=== PATIENT | female | born 1970 | race Hispanic/Latino ===

== ENCOUNTER 2017-07-31 14:53 | Inpatient (IN) | payer SELFPAY ==
[~2017-07-31] VITALS: Ht 160 cm; Wt 79.2 kg
[2017-07-31] MEDS ORDERED: METHYLPREDNISOLONE SOD SUCC 125MG/2ML VIAL ONE (15:41)
[2017-07-31] MEDS ORDERED: AMPICILLIN SODIUM/SULBACTAM NA 1.5GM VIAL ONE (15:42)
[2017-07-31] MEDS ORDERED: DEXTROSE 5 % AND 0.9 % NACL 1,000 ML IV ONE (15:43)
[2017-07-31 15:45] LABS: BASOPHILS % (AUTO) 0.2 % (0.0-5.0); LYMPHOCYTES % (AUTO) 10.7 % (21.0-51.0); MEAN CORPUSCULAR HEMOGLOBIN 29.2 pg (27.0-33.0); MEAN CORPUSCULAR HGB CONC 33.8 g/dL (32.0-36.0); MEAN CORPUSCULAR VOLUME 86.3 fL (79-99); NEUTROPHILS % (AUTO) 82.1 % (40.0-77.0); PLATELET COUNT (AUTO) 465 K/uL (130-400); RED BLOOD CELL COUNT(AUTO) 4.87 MIL/uL (4.00-5.50); RED CELL DISTRIBUTION WIDTH 12.8 % (11.0-15.5); WHITE BLOOD COUNT (AUTO) 18.4 K/uL (4.8-10.8)
[2017-07-31] MEDS ORDERED: ACETAMINOPHEN-CODEINE ELIXIR 5 ML UDCUP ONE (16:06)
[2017-07-31 16:10] LABS: CREATININE 0.7 mg/dL (0.5-1.5); POTASSIUM 3.2 mmol/L (3.5-5.1)
[2017-07-31 16:15] LABS: ALBUMIN 3.5 g/dL (3.5-5.0); BILIRUBIN,TOTAL 0.7 mg/dL (0.2-1.0); TOTAL PROTEIN, SERUM 8.8 g/dL (6.0-8.3)
[2017-07-31 17:40] VITALS: BP 143/87
[2017-07-31] MEDS ORDERED: METF500T6 PO (18:07)
[2017-07-31] MEDS ORDERED: LISI10TA7 PO (18:07)
[2017-07-31] MEDS ORDERED: FLU VACC QS2017-18 36MOS UP/PF 60 MCG/0.5 ML ML IM SCH (18:30)
[2017-07-31] MEDS: DEXTROSE 5 % AND 0.9 % NACL 1,000 ML IV SCH (18:33)
[2017-07-31] MEDS ORDERED: GLUCAGON 1MG KIT 1 MG ML IM PRN (19:30)
[2017-07-31] MEDS ORDERED: DEXTROSE 50%-WATER 50 ML DISP.SYRIN IV PRN (19:30)
[2017-07-31 20:00] VITALS: BP 150/89
[2017-07-31] MEDS: ACETAMINOPHEN-CODEINE ELIXIR 5 ML UDCUP PO PRN (21:31)
[2017-07-31] MEDS: INSULIN HUMULIN R 100 UNIT/ML 3ML SQ SCH (21:47)
[2017-08-01] VITALS: BP 142/73
[2017-08-01] MEDS ORDERED: POTASSIUM CHLORIDE 20 MEQ ERTAB PO PRN (01:30)
[2017-08-01] MEDS ORDERED: HYDRALAZINE HCL 20 MG/ML VIAL IV PRN (01:30)
[2017-08-01] MEDS ORDERED: ONDANSETRON HCL 4 MG/2 ML VIAL IVP PRN (01:30)
[2017-08-01] MEDS ORDERED: POTASSIUM CHLORIDE 10% ELIXIR 20 MEQ/15 ML UDCUP PO PRN (01:30)
[2017-08-01] MEDS ORDERED: BISACODYL 10 MG SUPP.RECT RC ONE (01:30)
[2017-08-01] MEDS ORDERED: LACTULOSE 20 GM/30 ML UDCUP PO PRN (01:30)
[2017-08-01] MEDS ORDERED: MORPHINE SULFATE 2 MG/ML 1ML SYG IVP PRN (01:30)
[2017-08-01] MEDS ORDERED: IPRATROPIUM/ALBUTEROL SULFATE 3 ML SOLUTION IH PRN (01:30)
[2017-08-01] MEDS: UNASYN 1.5GM+NS 100ML 100 ML IV SCH ×2 (03:34→15:59)
[2017-08-01] MEDS: MORPHINE SULFATE 2 MG/ML 1ML SYG IVP PRN ×2 (03:42→11:07)
[2017-08-01 03:48] LABS: BASOPHILS % (AUTO) 0.1 % (0.0-5.0); HEMATOCRIT 36.4 % (36-48); LYMPHOCYTES % (AUTO) 8.5 % (21.0-51.0); MEAN CORPUSCULAR HEMOGLOBIN 28.8 pg (27.0-33.0); MEAN CORPUSCULAR HGB CONC 33.8 g/dL (32.0-36.0); MEAN CORPUSCULAR VOLUME 85.3 fL (79-99); MONOCYTES % (AUTO) 3.6 % (3.0-13.0); NEUTROPHILS % (AUTO) 87.8 % (40.0-77.0); PLATELET COUNT (AUTO) 381 K/uL (130-400); RED BLOOD CELL COUNT(AUTO) 4.27 MIL/uL (4.00-5.50); RED CELL DISTRIBUTION WIDTH 12.5 % (11.0-15.5); WHITE BLOOD COUNT (AUTO) 11.6 K/uL (4.8-10.8)
[2017-08-01 03:57] LABS: CREATININE 0.4 mg/dL (0.5-1.5)
[2017-08-01 04:00] VITALS: BP 149/91
[2017-08-01 04:02] LABS: HEMOGLOBIN A1C 7.7 % (4.0-6.0)
[2017-08-01] MEDS: INSULIN HUMULIN R 100 UNIT/ML 3ML SQ SCH ×4 (06:14→21:38)
[2017-08-01] MEDS: DEXTROSE 5 % AND 0.9 % NACL 1,000 ML IV SCH (06:40)
[2017-08-01 08:00] VITALS: BP 146/88
[2017-08-01] MEDS: METFORMIN HCL 500 MG TAB.SR.24H PO SCH (09:13)
[2017-08-01] MEDS: SODIUM CHLORIDE 0.9% 1000ML 1,000 ML IV SCH (09:13)
[2017-08-01] MEDS: FAMOTIDINE/PF 20 MG/2 ML VIAL IV SCH ×2 (09:13→21:32)
[2017-08-01] MEDS: LISINOPRIL 10 MG TABLET PO SCH (09:14)
[2017-08-01 11:00] VITALS: BP 153/96
[2017-08-01] MEDS: CHLORHEXIDINE GLUCONATE 473 ML MOUTHWASH MM SCH ×2 (15:59→21:33)
[2017-08-01 16:00] VITALS: BP 137/91
[2017-08-01] MEDS: ACETAMINOPHEN-CODEINE ELIXIR 5 ML UDCUP PO PRN (18:00)
[2017-08-01 20:00] VITALS: BP 131/59
[2017-08-02] VITALS: BP 128/65
[2017-08-02 04:00] VITALS: BP 121/75
[2017-08-02] MEDS: UNASYN 1.5GM+NS 100ML 100 ML IV SCH ×2 (05:02→17:30)
[2017-08-02] MEDS: SODIUM CHLORIDE 0.9% 1000ML 1,000 ML IV SCH (05:02)
[2017-08-02 05:08] LABS: BASOPHILS % (AUTO) 0.1 % (0.0-5.0); EOSINOPHILS % (AUTO) 0.3 % (0.0-8.0); HEMATOCRIT 34.3 % (36-48); LYMPHOCYTES % (AUTO) 5.6 % (21.0-51.0); MEAN CORPUSCULAR HEMOGLOBIN 29.2 pg (27.0-33.0); MEAN CORPUSCULAR HGB CONC 34.7 g/dL (32.0-36.0); MEAN CORPUSCULAR VOLUME 84.2 fL (79-99); MONOCYTES % (AUTO) 4.7 % (3.0-13.0); NEUTROPHILS % (AUTO) 89.3 % (40.0-77.0); PLATELET COUNT (AUTO) 345 K/uL (130-400); RED BLOOD CELL COUNT(AUTO) 4.08 MIL/uL (4.00-5.50); RED CELL DISTRIBUTION WIDTH 12.2 % (11.0-15.5); WHITE BLOOD COUNT (AUTO) 17.2 K/uL (4.8-10.8)
[2017-08-02 05:47] LABS: CREATININE 0.6 mg/dL (0.5-1.5); POTASSIUM 3.1 mmol/L (3.5-5.1)
[2017-08-02] MEDS: INSULIN HUMULIN R 100 UNIT/ML 3ML SQ SCH ×4 (06:48→21:26)
[2017-08-02 08:00] VITALS: BP 139/79
[2017-08-02] MEDS: METFORMIN HCL 500 MG TAB.SR.24H PO SCH (09:00)
[2017-08-02] MEDS: MORPHINE SULFATE 2 MG/ML 1ML SYG IVP PRN (09:57)
[2017-08-02] MEDS: LISINOPRIL 10 MG TABLET PO SCH (09:57)
[2017-08-02] MEDS: FAMOTIDINE/PF 20 MG/2 ML VIAL IV SCH ×2 (09:57→21:22)
[2017-08-02] MEDS: LIDOCAINE HCL-MPF 1% 2ML VIAL IVP PRN ×2 (09:58→14:49)
[2017-08-02] MEDS: POTASSIUM CHLORIDE 20MEQ/100ML 100 ML IV PRN ×2 (09:58→14:48)
[2017-08-02] MEDS: CHLORHEXIDINE GLUCONATE 473 ML MOUTHWASH MM SCH ×3 (10:04→21:22)
[2017-08-02 12:00] VITALS: BP 143/79
[2017-08-02 16:00] VITALS: BP 141/76
[2017-08-02] MEDS ORDERED: SODIUM CHLORIDE 0.9% 100 ML IV ONE (16:39)
[2017-08-02 20:00] VITALS: BP 149/84
[2017-08-03] VITALS: BP 138/87
[2017-08-03 04:08] LABS: BASOPHILS % (AUTO) 0.2 % (0.0-5.0); EOSINOPHILS % (AUTO) 2.3 % (0.0-8.0); HEMATOCRIT 35.7 % (36-48); MEAN CORPUSCULAR HEMOGLOBIN 29.4 pg (27.0-33.0); MEAN CORPUSCULAR HGB CONC 34.7 g/dL (32.0-36.0); MEAN CORPUSCULAR VOLUME 84.5 fL (79-99); MONOCYTES % (AUTO) 5.8 % (3.0-13.0); NEUTROPHILS % (AUTO) 64.7 % (40.0-77.0); PLATELET COUNT (AUTO) 316 K/uL (130-400); RED BLOOD CELL COUNT(AUTO) 4.22 MIL/uL (4.00-5.50); RED CELL DISTRIBUTION WIDTH 12.7 % (11.0-15.5)
[2017-08-03 04:09] LABS: CREATININE 0.4 mg/dL (0.5-1.5)
[2017-08-03] MEDS: UNASYN 1.5GM+NS 100ML 100 ML IV SCH ×2 (04:15→17:11)
[2017-08-03] MEDS: MORPHINE SULFATE 2 MG/ML 1ML SYG IVP PRN (04:23)
[2017-08-03] MEDS: INSULIN HUMULIN R 100 UNIT/ML 3ML SQ SCH ×4 (06:35→21:00)
[2017-08-03] MEDS: POTASSIUM CHLORIDE 20MEQ/100ML 100 ML IV PRN ×2 (06:36→18:38)
[2017-08-03] MEDS ORDERED: MAGNESIUM 2GM PREMIX 50ML 50 ML IV SCH (07:15)
[2017-08-03 08:00] VITALS: BP 123/77
[2017-08-03] MEDS: METFORMIN HCL 500 MG TAB.SR.24H PO SCH (09:00)
[2017-08-03] MEDS: LISINOPRIL 10 MG TABLET PO SCH (10:16)
[2017-08-03] MEDS: CHLORHEXIDINE GLUCONATE 473 ML MOUTHWASH MM SCH ×3 (10:17→21:37)
[2017-08-03] MEDS: FAMOTIDINE/PF 20 MG/2 ML VIAL IV SCH ×2 (10:17→21:37)
[2017-08-03 11:00] VITALS: BP 142/87
[2017-08-03 16:00] VITALS: BP 134/63
[2017-08-03] MEDS: LIDOCAINE HCL-MPF 1% 2ML VIAL IVP PRN (18:38)
[2017-08-03 19:30] VITALS: BP 152/95
[2017-08-03 23:20] VITALS: BP 132/77
[2017-08-04 03:20] VITALS: BP 128/64
[2017-08-04 03:43] LABS: CREATININE 0.5 mg/dL (0.5-1.5); POTASSIUM 3.4 mmol/L (3.5-5.1)
[2017-08-04] MEDS: UNASYN 1.5GM+NS 100ML 100 ML IV SCH (03:59)
[2017-08-04 07:00] VITALS: BP 129/79
[2017-08-04] MEDS: INSULIN HUMULIN R 100 UNIT/ML 3ML SQ SCH ×2 (07:30→11:32)
[2017-08-04] MEDS: CHLORHEXIDINE GLUCONATE 473 ML MOUTHWASH MM SCH (09:00)
[2017-08-04] MEDS: METFORMIN HCL 500 MG TAB.SR.24H PO SCH (09:46)
[2017-08-04] MEDS: LISINOPRIL 10 MG TABLET PO SCH (09:47)
[2017-08-04 11:00] VITALS: BP 136/84
== END 2017-08-04 13:05 | disposition home or self-care (01) | DRG 134 ==
LOC: EDH 14:53 → EDHIP 14:54 → 3AH 17:42
PROVIDERS: ADMIT Otolaryngology Plastic Surgery within the Head & Neck; ATTEND Otolaryngology Plastic Surgery within the Head & Neck
PROC: 0C9P0ZZ Drainage of Tonsils, Open Approach (ICD-10-PCS; principal; 2017-08-01)
PROC: 3E0234Z Introduction of Serum, Toxoid and Vaccine into Muscle, Percutaneous Approach (ICD-10-PCS; 2017-08-01)
DX: J36 Peritonsillar abscess (principal); E11.65 Type 2 diabetes mellitus with hyperglycemia; E87.6 Hypokalemia; E86.0 Dehydration; I10 Essential (primary) hypertension; E78.5 Hyperlipidemia, unspecified; Z23 Encounter for immunization
CPT/HCPCS: 10060; 36415; 80048; 80053; 82948; 83036; 83735; 84132; 85025; 87070; 94664; G0008; J0295; J1815; J2930; J3475; J3480; J3490; J7030; J7042; Q2038

== ENCOUNTER 2019-04-01 18:02 | Emergency (ER) | payer SELFPAY ==
[~2019-04-01 18:02] MED LIST: LISI10TA7 PO; METF-444 PO
[2019-04-01] MEDS ORDERED: ACETAMINOPHEN EXTRA STRENGTH 500 MG TABLET ONE (20:25)
== END 2019-04-01 20:35 | disposition home or self-care (01) ==
LOC: EDH 18:02
DX: S86.811A Strain of other muscle(s) and tendon(s) at lower leg level, right leg, initial encounter (principal); S93.401A Sprain of unspecified ligament of right ankle, initial encounter; I10 Essential (primary) hypertension; E11.9 Type 2 diabetes mellitus without complications; X58.XXXA Exposure to other specified factors, initial encounter; Y93.89 Activity, other specified; Y92.89 Other specified places as the place of occurrence of the external cause; Y99.8 Other external cause status
CPT/HCPCS: 73600; 93971

== ENCOUNTER 2020-06-15 20:36 | Observation (INO) | payer OTHER, SELFPAY ==
[~2020-06-15] VITALS: Ht 157.5 cm; Wt 73.9 kg
[~2020-06-15 20:36] MED LIST changes: +LISI10TA24 PO; -LISI10TA7 PO
[2020-06-15] MEDS ORDERED: AZITHROMYCIN 500MG+NS 250ML 250 ML IV ONE (21:31)
[2020-06-15] MEDS ORDERED: CEFTRIAXONE SODIUM 2 GM VIAL ONE (21:31)
[2020-06-15] MEDS ORDERED: IBUPROFEN 200 MG TAB ONE (21:31)
[2020-06-15] MEDS ORDERED: IBUPROFEN 400 MG TABLET ONE (21:31)
[2020-06-15 21:33] LABS: BASOPHILS % (AUTO) 0.1 % (0.0-5.0); EOSINOPHILS % (AUTO) 1.7 % (0.0-8.0); LYMPHOCYTES % (AUTO) 11.9 % (21.0-51.0); MEAN CORPUSCULAR HEMOGLOBIN 28.8 pg (27.0-33.0); MEAN CORPUSCULAR HGB CONC 34.4 g/dL (32.0-36.0); MEAN CORPUSCULAR VOLUME 83.7 fL (79-99); MONOCYTES % (AUTO) 5.9 % (3.0-13.0); NEUTROPHILS % (AUTO) 80.3 % (40.0-77.0); PLATELET COUNT (AUTO) 168 K/uL (130-400); RED BLOOD CELL COUNT(AUTO) 5.14 MIL/uL (4.00-5.50); RED CELL DISTRIBUTION WIDTH 11.3 % (11.0-15.5); WHITE BLOOD COUNT (AUTO) 7.5 K/uL (4.8-10.8)
[2020-06-15 21:49] LABS: CARBON DIOXIDE 27 mmol/L (21-32); CHLORIDE 94 mmol/L (101-111); CREATININE 0.7 mg/dL (0.5-1.5); GLOMERULAR FILTR. RATE CALC 95 mL/min (>60); GLUCOSE,RANDOM 276 mg/dL (70-105); INR 1.02 (0.85-1.15); POTASSIUM 3.4 mmol/L (3.5-5.1); PROTHROMBIN TIME 10.9 SEC (9.6-11.6); SODIUM SERUM 133 mmol/L (136-145); UREA NITROGEN, BLOOD 9 mg/dL (7-18)
[2020-06-15 21:51] LABS: PARTIAL THROMBOPLASTIN TIME 31.1 SEC (26.3-35.5)
[2020-06-15 22:00] LABS: ALANINE AMINOTRANSFERASE 24 U/L (12-78); ALBUMIN 4.1 g/dL (3.5-5.0); ASPARTATE AMINOTRANSFERASE 21 U/L (10-37); BILIRUBIN,TOTAL 0.9 mg/dL (0.2-1.0); CREATINE KINASE, TOTAL 31 U/L (21-232); MYOGLOBIN 22 ng/mL (10-92); TOTAL PROTEIN, SERUM 8.6 g/dL (6.0-8.3); TROPONIN I < 0.04 ng/mL (0.00-0.06)
[2020-06-15 22:13] LABS: ABG BASE EXCESS -0.3 mmol/L (-2.0-3.0); ABG HCO3 22.1 mmol/L (21.0-28.0); ABG OXYGEN SATURATION 95.1 % (95.0-99.0); ABG PCO2 31 mmHg (32-45)
[2020-06-16] MEDS ORDERED: POTASSIUM CHLORIDE 20 MEQ ERTAB PO ONE (00:12)
[2020-06-16] MEDS ORDERED: ONDANSETRON HCL 4 MG/2 ML VIAL IV PRN (00:30)
[2020-06-16] MEDS ORDERED: IBUPROFEN 600 MG TABLET PO PRN (00:30)
[2020-06-16] MEDS: DOXYCYCLINE 100MG+NS 250ML 250 ML IV SCH ×2 (00:30→10:40)
[2020-06-16] MEDS ORDERED: CEFTRIAXONE SODIUM 1 GM IV SCH (00:30)
[2020-06-16 00:33] LABS: APPEARANCE,URINE Turbid (CLEAR); BILIRUBIN,URINE Negative (NEGATIVE); COLOR,URINE Yellow (YELLOW); GLUCOSE, URINE (UA) >=1000 mg/dL (NEGATIVE); KETONES,URINE 40 mg/dL (NEGATIVE); LEUKOCYTE ESTERASE ,URINE Trace (NEGATIVE); NITRATE,URINE Negative (NEGATIVE); OCCULT BLOOD,URINE Negative (NEGATIVE); PROTEIN,URINE Trace mg/dL (NEGATIVE)
[2020-06-16] MEDS ORDERED: DOXYCYCLINE 100MG+NS 250ML 250 ML IV ONE (00:39)
[2020-06-16 00:55] LABS: BACTERIA,URINE Few /HPF (None Seen); RBC,URINE 0-1 /HPF (0-1); WBC,URINE 0-1 /HPF (0-1)
[2020-06-16 00:56] LABS: YEAST,URINE BUDDING Many /HPF (None Seen)
[2020-06-16 03:43] VITALS: BP 124/79
[2020-06-16] MEDS ORDERED: LISI20TA24 PO ×2 (04:01→05:02)
[2020-06-16] MEDS ORDERED: METF-446 PO (04:01)
[2020-06-16 06:28] LABS: INR 1.02 (0.85-1.15); PROTHROMBIN TIME 10.9 SEC (9.6-11.6)
[2020-06-16 06:29] LABS: PARTIAL THROMBOPLASTIN TIME 30.8 SEC (26.3-35.5)
[2020-06-16] MEDS: INSULIN HUMULIN R 100 UNIT/ML 3ML SQ SCH ×3 (07:30→16:31)
[2020-06-16] MEDS ORDERED: ENOXAPARIN SODIUM 40 MG/0.4 ML SYRINGE SQ SCH (09:00)
[2020-06-16] MEDS ORDERED: LISINOPRIL 20 MG TABLET PO SCH (09:00)
[2020-06-16] MEDS ORDERED: FAMOTIDINE/PF 20 MG/2 ML VIAL IV SCH (09:00)
[2020-06-16 11:42] VITALS: BP 150/82
[2020-06-16] MEDS ORDERED: CEFD300C3 PO (13:25)
[2020-06-16] MEDS ORDERED: DOXY100C2 PO (13:25)
[2020-06-16 15:32] VITALS: BP 113/64
[2020-06-16] MEDS ORDERED: INSULIN GLARGINE 100 UNITS/ML 10 ML VIAL SQ SCH (21:00)
== END 2020-06-16 13:00 | disposition home or self-care (01) ==
LOC: EDH 20:36 → EDHIP 20:37 → 2AH 06-16 03:30
PROVIDERS: ADMIT Internal Medicine; ATTEND Internal Medicine
DX: U07.1 COVID-19 (principal); J12.82 Pneumonia due to coronavirus disease 2019; E87.6 Hypokalemia; E11.65 Type 2 diabetes mellitus with hyperglycemia; I10 Essential (primary) hypertension; Z79.84 Long term (current) use of oral hypoglycemic drugs; Z79.899 Other long term (current) drug therapy
CPT/HCPCS: 36415 ×2; 36600; 71045; 80053; 81001; 82550; 82803; 82948 ×4; 83036; 83605 ×2; 83874; 83880; 84145 ×2; 84484; 85025; 85378 ×2; 85610 ×2; 85730 ×2; 86900; 86901; 87040 ×2; 87077; 87088; 87186; 87426; 87804 ×2; 93005; 96365; 96366; 96372; 96375; 99285; G0378 ×13; J0456; J0696; J1650; J1815 ×2; J3490 ×3